=== PATIENT | female | born 1995 | race Caucasian/White ===

== ENCOUNTER 2021-07-21 22:15 | Emergency (ER) | payer OTHER ==
[~2021-07-21] VITALS: Ht 175.3 cm; Wt 77.1 kg
[2021-07-22 02:07] LABS: BASO % 0.4 % (0.0-1.0); EOS # 0.2 10^3/uL (0.0-0.5); EOS % 2.6 % (0.0-3.0); HEMATOCRIT 35.2 % (36.0-47.0); HEMOGLOBIN 11.6 g/dl (12.0-15.5); LYMPH # 3.6 10^3/uL (1.5-5.0); LYMPH % 51.1 % (24.0-44.0); MEAN CORPUSCULAR HEMOGLOBIN 31.5 pg (27.0-33.0); MEAN CORPUSCULAR VOLUME 95.7 fl (80.0-96.0); MONO # 0.4 10^3/uL (0.0-0.8); MONO % 6.1 % (2.0-8.0); NEUTROPHILS # 2.8 10^3/uL (1.5-8.5); NEUTROPHILS % 39.5 % (36.0-66.0); PLATELET COUNT, AUTOMATED 276 10^3/uL (150-450); RED BLOOD COUNT 3.68 10^6/uL (4.00-5.40)
[2021-07-22 02:29] LABS: BLOOD UREA NITROGEN 15 MG/DL (7-18); CALCIUM LEVEL 8.7 MG/DL (8.5-10.1); CARBON DIOXIDE LEVEL 29 MEQ/L (21-32); CHLORIDE LEVEL 108 MEQ/L (98-107); CREATININE FOR GFR 0.72 MG/DL (0.55-1.30); GLOMERULAR FILTRATION RATE > 60.0 (>60); GLUCOSE, FASTING 92 MG/DL (70-100); POTASSIUM SERUM 4.3 MEQ/L (3.5-5.1); SODIUM LEVEL 143 MEQ/L (136-145)
[2021-07-22] MEDS ORDERED: medroxyPROGESTERone 5MG TABLET PO ONE (03:00)
[2021-07-22] MEDS ORDERED: PROV10TA PO (03:00)
[2021-07-22 03:21] VITALS: BP 120/74
== END 2021-07-22 03:22 | disposition home or self-care (01) ==
LOC: M ED 22:15
DX: N93.8 Other specified abnormal uterine and vaginal bleeding (principal); F17.200 Nicotine dependence, unspecified, uncomplicated; F10.10 Alcohol abuse, uncomplicated

== ENCOUNTER 2022-01-21 23:16 | Outpatient (CLI) | payer OTHER ==
[~2022-01-21] VITALS: Ht 175.3 cm; Wt 85.5 kg
[~2022-01-21 23:16] MED LIST: PROV10TA PO
[2022-01-21 23:51] VITALS: BP 119/67
[2022-01-22] MEDS ORDERED: HOME MED LIST COMPLETE! XX SCH (01:00)
[2022-01-22] MEDS ORDERED: FOLI5INJ2 SC (01:02)
[2022-01-22] MEDS ORDERED: PRENTAB9 PO (01:02)
[2022-01-22] MEDS ORDERED: TUMS500C PO (01:02)
[2022-01-22] MEDS ORDERED: ACET325C5 PO (01:02)
[2022-01-22] MEDS ORDERED: UNIS25TA5 PO (01:03)
[2022-01-22 01:48] LABS: HEMATOCRIT 33.3 % (36.0-47.0); HEMOGLOBIN 11.1 g/dl (12.0-15.5); MEAN CORPUSCULAR HGB CONC 33.3 g/dl (32.0-36.5); PLATELET COUNT, AUTOMATED 237 10^3/uL (150-450); RED BLOOD COUNT 3.47 10^6/uL (4.00-5.40); WHITE BLOOD COUNT 12.7 10^3/uL (4.0-10.0)
[2022-01-22 03:47] LABS: GC DNA AMPLIFICATION NEGATIVE (NEGATIVE)
== END 2022-01-22 02:00 ==
LOC: M LDO 23:16
PROVIDERS: ATTEND Obstetrics & Gynecology
DX: O20.0 Threatened abortion (principal); O30.042 Twin pregnancy, dichorionic/diamniotic, second trimester; Z3A.22 22 weeks gestation of pregnancy; O26.872 Cervical shortening, second trimester; O32.1XX1 Maternal care for breech presentation, fetus 1
CPT/HCPCS: 59025; 81000; 81015; 85027; 86780; 86850; 86900; 86901; 87086; 87635; 87661; 87810; 87850; G0463

== ENCOUNTER 2022-01-26 08:43 | Outpatient (CLI) | payer OTHER ==
[~2022-01-26] VITALS: Ht 175.3 cm; Wt 84.7 kg
[~2022-01-26 08:43] MED LIST changes: +ACET325C5 PO; +FOLI5INJ2 SC; +PRENTAB9 PO; +TUMS500C PO; +UNIS25TA5 PO
[2022-01-26] MEDS ORDERED: PROG1CAP8 PO (09:08)
[2022-01-26] MEDS ORDERED: OMEP10CASR PO (09:08)
[2022-01-26] MEDS ORDERED: ECOT81TA5 PO (09:08)
[2022-01-26 09:09] VITALS: BP 112/67
[2022-01-26] MEDS ORDERED: HOME MED LIST COMPLETE! XX SCH (09:10)
[2022-01-26 09:59] VITALS: BP 128/70
[2022-01-26] MEDS ORDERED: BETAMETHASONE SOLUSPAN 6MG/ML 5ML VIAL (J0702 PER 3MG) IM SCH (10:00)
== END 2022-01-26 09:56 | disposition home or self-care (01) ==
LOC: M LDO 08:43
PROVIDERS: ATTEND Advanced Practice Midwife
DX: O30.042 Twin pregnancy, dichorionic/diamniotic, second trimester (principal); Z3A.23 23 weeks gestation of pregnancy; O32.1XX1 Maternal care for breech presentation, fetus 1; O32.1XX2 Maternal care for breech presentation, fetus 2
CPT/HCPCS: 59025; 96372; G0378; G0463; J0702

== ENCOUNTER 2022-01-27 09:20 | Outpatient (CLI) | payer OTHER ==
[~2022-01-27] VITALS: Ht 175.3 cm; Wt 84.1 kg
[~2022-01-27 09:20] MED LIST changes: +ECOT81TA5 PO; +OMEP10CASR PO; +PROG1CAP8 PO
[2022-01-27] MEDS ORDERED: BETAMETHASONE SOLUSPAN 6MG/ML 5ML VIAL (J0702 PER 3MG) IM SCH (09:55)
[2022-01-27 10:07] VITALS: BP 114/75
== END 2022-01-27 10:20 | disposition home or self-care (01) ==
LOC: M LDO 09:20
PROVIDERS: ATTEND Advanced Practice Midwife
DX: O30.042 Twin pregnancy, dichorionic/diamniotic, second trimester (principal); Z3A.23 23 weeks gestation of pregnancy; O32.1XX1 Maternal care for breech presentation, fetus 1; O32.1XX2 Maternal care for breech presentation, fetus 2
CPT/HCPCS: 59025; 96372; G0378; G0463; J0702

== ENCOUNTER 2022-02-06 09:46 | Inpatient (IN) | payer OTHER ==
[~2022-02-06] VITALS: Ht 175.3 cm; Wt 83.2 kg
[2022-02-06] VITALS (7 sets, daily range): BP systolic 104–118; BP diastolic 56–67
[2022-02-06] MEDS ORDERED: BETAMETHASONE SOLUSPAN 6MG/ML 5ML VIAL (J0702 PER 3MG) IM STA (10:19)
[2022-02-06] MEDS ORDERED: FAMO10TA50 PO (10:25)
[2022-02-06] MEDS: LR 1,000 ML IV SCH ×2 (10:29→12:02)
[2022-02-06] MEDS ORDERED: TERBUTALINE SULFATE 1 MG/ML VIAL (J3105) SC STA ×2 (10:33→14:02)
[2022-02-06] MEDS ORDERED: CALCIUM GLUCONATE 1,000 MG in D5W MINI-BAG PLUS 100 ML IV PRN (10:55)
[2022-02-06] MEDS ORDERED: MAG Sulf (L&D) 4 GM/100 ML 4 GM in IV 1 EA IV ONE (11:20)
[2022-02-06 11:25] LABS: APPEARANCE, URINE MANUAL CLEAR (CLEAR); COLOR, URINE MANUAL LT YELLOW (YELLOW)
[2022-02-06 11:26] LABS: SPECIFIC GRAVITY,URINE MANUAL 1.001 (1.002-1.035)
[2022-02-06 11:28] LABS: BILIRUBIN, URINE MANUAL NEGATIVE (NEGATIVE); BLOOD URINE MANUAL NEGATIVE (NEGATIVE); GLUCOSE, URINE (UA) MANUAL NEGATIVE (NEGATIVE); KETONE, URINE MANUAL NEGATIVE (NEGATIVE); LEUKOCYTE ESTERASE, URINE MAN NEGATIVE (NEGATIVE); NITRITE, URINE MANUAL NEGATIVE (NEGATIVE); PROTEIN, URINE MANUAL NEGATIVE (NEGATIVE); UROBILINOGEN, URINE MANUAL NORMAL (NORMAL)
[2022-02-06] MEDS ORDERED: MAG Sulf (OBGYN) 20GM/500ML 20,000 MG in IV 1 EA IV SCH (11:40)
== END 2022-02-06 16:39 | disposition short-term general hospital (02) | DRG 998 ==
LOC: M LDO 09:46 → M LDI 10:13 → M LDO 16:39
PROVIDERS: ADMIT Advanced Practice Midwife; ATTEND Advanced Practice Midwife
DX: O60.12X0 Preterm labor second trimester with preterm delivery second trimester, not applicable or unspecified (principal); Z3A.24 24 weeks gestation of pregnancy; O30.042 Twin pregnancy, dichorionic/diamniotic, second trimester

== ENCOUNTER → 2023-04-30 | Outpatient (CLI) | payer OTHER ==
[~2023-04-30] MED LIST changes: +FAMO10TA50 PO
== END ==
LOC: M WHC 09:58
PROVIDERS: ATTEND Internal Medicine
DX: N63.23 Unspecified lump in the left breast, lower outer quadrant (principal); N63.24 Unspecified lump in the left breast, lower inner quadrant

== ENCOUNTER → 2023-05-10 | Outpatient (CLI) | payer OTHER | LOC: M CARPUL 13:21 | PROVIDERS: ATTEND Internal Medicine | DX: R00.2 Palpitations (principal) ==